=== PATIENT | female | born 1935 | race Caucasian/White ===

== ENCOUNTER → 2016-11-06 | Outpatient (CLI) | payer MEDICARE ==
[~2016-11-06] MED LIST: ASPIRIN E.C. 8181 MG PO; BENICAR20 MG PO; CALCIUM + D 6001 TA1 PO; CLOPIDOGREL PO; CRESTOR PO; LISINOPRIL2.5 MG PO; LIVALO2 MG PO; LOPRESSOR50 MG PO; MULTIPLE VITAMI1 CAP PO; [UNRECOGNIZED DRUG - REMARK]; [UNRECOGNIZED DRUG - REMARK]
== END ==
LOC: COL.RAD 07:37
DX: Z01.812 Encounter for preprocedural laboratory examination (principal); I70.213 Atherosclerosis of native arteries of extremities with intermittent claudication, bilateral legs; I70.0 Atherosclerosis of aorta
CPT/HCPCS: Q9967

== ENCOUNTER → 2017-02-10 | Outpatient (CLI) | payer MEDICARE | LOC: MC.RAD 15:33 | DX: Z12.31 Encounter for screening mammogram for malignant neoplasm of breast (principal) ==

== ENCOUNTER → 2018-05-19 | Outpatient (CLI) | payer MEDICARE | LOC: MC.RAD 03-12 17:00 | DX: Z12.31 Encounter for screening mammogram for malignant neoplasm of breast (principal) ==

== ENCOUNTER → 2018-10-21 | Outpatient (CLI) | payer MEDICARE ==
--- NOTE | 2018-10-16 14:49 | NUR ---
PT WAS RESCHEDULED FOR Friday10/21/18 @ 1230. PT CALLED AND INFORMED. STOPPED PLAVIX ON 10/17/18
[~2018-10-21] VITALS: Ht 157.5 cm; Wt 66.3 kg
[~2018-10-21] MED LIST changes: -CALCIUM + D 6001 TA1 PO; +CALCIUM 600MG+D1 TAB PO; +CLARITIN 1010 MG/TAB PO; -CLOPIDOGREL PO; +COZAAR100 MG PO; +LOPRESSOR100 MG PO; +NORVASC2.5 MG PO; +PLAVIX 75MG TAB75 MG PO; +ZOCOR 20MG20 MG PO
[2018-10-21 12:44] VITALS: BP 142/55; PULSE 74
[2018-10-21 13:30] VITALS: BP 155/58; PULSE 70
--- NOTE | 2018-10-21 13:45 | NUR ---
pt out to car per ambulation. Denies complaints at this time. Pt and awaiting ride home.
== END ==
LOC: COL.RAD 10-20 12:30
DX: R18.8 Other ascites (principal); Z85.43 Personal history of malignant neoplasm of ovary

== ENCOUNTER → 2018-12-03 | Outpatient (CLI) | payer MEDICARE | LOC: COL.RAD 10:01 | DX: C56.9 Malignant neoplasm of unspecified ovary (principal); J90 Pleural effusion, not elsewhere classified; R18.8 Other ascites | CPT/HCPCS: Q9967 ==

== ENCOUNTER → 2018-12-04 | Outpatient (CLI) | payer MEDICARE ==
[~2018-12-04] VITALS: Ht 157.5 cm; Wt 61.4 kg
[2018-12-04 12:12] VITALS: BP 146/77; PULSE 75
[2018-12-04 13:10] VITALS: BP 137/48; PULSE 73
--- NOTE | 2018-12-04 13:10 | NUR ---
dr wan removed 550 cc of orange fluid from the lung. cxr is negative.
--- NOTE | 2018-12-04 13:25 | NUR ---
PT AMBULATED TO [facility] AND WAS LEFT WITH FAMILY. SHE DID NOT WANT A WHEELCHAIR.
[2018-12-04 13:29] LABS: PLEURAL FLUID RBC 5000 /mm3 (0-0); PLEURAL FLUID WBC 1272 /mm3
[2018-12-04 13:35] LABS: GLUCOSE,PLEURAL FLUID 77 mg/dL
[2018-12-04 13:40] LABS: PLEURAL FLUID APPEARANCE CLOUDY; PLEURAL FLUID COLOR YELLOW
== END ==
LOC: COL.RAD 11:58
PROVIDERS: Internal Medicine Medical Oncology
DX: J90 Pleural effusion, not elsewhere classified (principal); C56.9 Malignant neoplasm of unspecified ovary

== ENCOUNTER 2019-01-05 13:51 | Day surgery (SDC) | payer MEDICARE ==
[~2019-01-05] VITALS: Ht 157.5 cm; Wt 62.4 kg
[2019-01-05] MEDS ORDERED: TYLENOL PM EXTR1 TA1 PO (14:39)
[2019-01-05 14:56] VITALS: BP 138/50; PULSE 60; TEMP 98.5
[2019-01-05 18:14] VITALS: TEMP 97.4
[2019-01-05 18:30] VITALS: BP 159/56; PULSE 57
[2019-01-05 18:45] VITALS: BP 159/62; PULSE 57
--- NOTE | 2019-01-05 18:49 | NUR ---
Pt up to room with at bedside. Post op vitals monitoring in progress, VSS. Pt denies pain at this time. Dinner ordered. Call light within reach.
[2019-01-05 19:00] VITALS: BP 152/55; PULSE 57
--- NOTE | 2019-01-05 19:10 | NUR ---
Patient is sitting up in bed eating supper, is at bedside. Patient is inquiring about discharge. No order has been placed. Will call on-call urologist with patients wishes.
--- NOTE | 2019-01-05 19:45 | NUR ---
Call placed to Dr. Simpson regarding patients discharge wishes. Notified of VS and urine output. Was given verbal order for discharge. Patient was notified and started gathering belongings and called for ride home.
--- NOTE | 2019-01-05 21:05 | NUR ---
Patient discharged at 2034 accompanied by via private vehicle. Personal belongings with patient. Port deaccessed prior to discharge. Hemostasis acheived.
== END 2019-01-05 20:35 | disposition home or self-care (01) ==
LOC: SDCO 13:51 → MEDICAL 18:46 → SDCO 20:35
DX: N13.1 Hydronephrosis with ureteral stricture, not elsewhere classified (principal); N39.46 Mixed incontinence; N32.81 Overactive bladder; C56.9 Malignant neoplasm of unspecified ovary; I25.10 Atherosclerotic heart disease of native coronary artery without angina pectoris; I10 Essential (primary) hypertension; R73.02 Impaired glucose tolerance (oral); M19.90 Unspecified osteoarthritis, unspecified site; M85.80 Other specified disorders of bone density and structure, unspecified site; Z90.710 Acquired absence of both cervix and uterus; Z95.1 Presence of aortocoronary bypass graft; Z79.02 Long term (current) use of antithrombotics/antiplatelets; Z79.899 Other long term (current) drug therapy; Z88.1 Allergy status to other antibiotic agents; Z88.7 Allergy status to serum and vaccine; Z88.8 Allergy status to other drugs, medicaments and biological substances; Z83.3 Family history of diabetes mellitus; Z82.49 Family history of ischemic heart disease and other diseases of the circulatory system
CPT/HCPCS: OP; C1769; C2617; J1100; J1885; J2405; J2704; J3010; J7120; Q9967

== ENCOUNTER → 2019-01-27 | Outpatient (CLI) | payer MEDICARE ==
[~2019-01-27] VITALS: Ht 157.5 cm; Wt 60.9 kg
[~2019-01-27] MED LIST changes: +TYLENOL PM EXTR1 TA1 PO
[2019-01-27 09:15] VITALS: BP 131/74; PULSE 67
--- NOTE | 2019-01-27 09:57 | NUR ---
No fluid to drain. Pt out to car ambulatory without complaints.
== END ==
LOC: COL.RAD 09:00
DX: C56.9 Malignant neoplasm of unspecified ovary (principal); R18.8 Other ascites

== ENCOUNTER 2019-04-24 11:28 | Observation (INO) | payer MEDICARE ==
[~2019-04-24] VITALS: Ht 154.9 cm; Wt 61.5 kg
[2019-04-24] MEDS ORDERED: NEULASTA 66 MG/0.6 M SC (11:54)
[2019-04-24 12:45] LABS: MEAN CELL VOLUME 98 fl (80.0-100.0); MEAN CORPUSCULAR HEMOGLOBIN 32 pg (27.0-31.0); MEAN CORPUSCULAR HGB CONC 33 g/dl (33.0-37.0); MEAN PLATELET VOLUME 9.3 fl (7.4-10.4); PLATELET COUNT 291 K/mm3 (130-400); REDCELL DISTRIBUTION WIDTH-CV 12.8 % (11.5-14.5)
[2019-04-24 12:54] LABS: HEMATOCRIT 30.5 % (37.0-47.0); INR 1.1 (0.8-3.0); PROTHROMBIN TIME 12.9 SECONDS (9.7-12.8)
[2019-04-24 12:57] LABS: ALANINE AMINOTRANSFERASE 15 U/L (9-52); ALBUMIN 3.4 gm/dL (3.5-5.0); ALKALINE PHOSPHATASE 66 U/L (50-136); ANION GAP 8 mmol/L (7-16); AST,SGOT 30 U/L (15-37); BILIRUBIN,TOTAL 0.3 mg/dL (0.0-1.0); BLOOD UREA NITROGEN 26 mg/dL (7-17); C-REACTIVE PROTEIN 1.5 mg/dL (0.0-0.9); CALCIUM 8.4 mg/dL (8.4-10.2); CARBON DIOXIDE 22 mmol/L (22-30); CHLORIDE 107 mmol/L (98-107); CREATININE, serum 0.74 (0.52-1.25); GLUCOSE 100 mg/dL (74-106); PARTIAL THROMBOPLASTIN TIME 30.3 SECONDS (26.0-37.0); SODIUM 138 mmol/L (137-145); TOTAL PROTEIN 6.9 gm/dL (6.4-8.2)
[2019-04-24 13:08] LABS: TROPONIN-I < 0.012 ng/mL (0.000-0.035)
[2019-04-24 14:19] LABS: COLLECTION METHOD CLEAN CATCH
[2019-04-24 14:21] LABS: LYMPHOCYTE 5 % (20.0-51.0); NEUTROPHILS 95 % (42.0-75.2); PLATELET ESTIMATE NORMAL (NORMAL)
[2019-04-24 14:35] LABS: MUCOUS Present /lpf; PH 5 (5-8); SQUAMOUS EPITHELIAL 0-2 /hpf; URINE APPEARANCE Turbid; URINE BACTERIA Rare /hpf; URINE BILIRUBIN Negative (NEGATIVE); URINE BLOOD 1+ (NEGATIVE); URINE COLOR Yellow; URINE GLUCOSE Negative (NEGATIVE); URINE KETONE Negative (NEGATIVE); URINE LEUKOCYTE ESTERASE 3+ (NEGATIVE); URINE NITRATE Positive (NEGATIVE); URINE PROTEIN(semi-quant) Negative (NEGATIVE); URINE UROBILINOGEN Negative (NEGATIVE)
--- NOTE | 2019-04-24 17:00 | NUR ---
Pt arrived to floor at this time from ER, will orient to room.
[2019-04-24 17:17] VITALS: BP 92/69; PULSE 89; TEMP 98.1
--- NOTE | 2019-04-24 18:44 | NUR ---
Pt resting in bed, PRN pain and nausea meds provided. Will give bedside shift report to nightshift nurse care.
[2019-04-24 21:15] VITALS: BP 98/50; PULSE 73; TEMP 98.1
--- NOTE | 2019-04-24 22:03 | NUR ---
Pt sleeping in bed. Came in for increasing abd pain, dx with ascites. will have paracentesis tomorrow. alert and oriented with vss. ind in room. states she if very sleepy. has dx of ovarian cancer with r uretal stent placement. chemo tx on . took pm meds well. lovenox for dvt. generalized abdominal pain but does not want medication at this time. denies needs. call light within reach, will continue to derrick
[2019-04-24 23:25] VITALS: BP 119/55; PULSE 72; TEMP 98.3
[2019-04-25 04:14] VITALS: BP 121/37; PULSE 76; TEMP 98.4
[2019-04-25 04:31] VITALS: BP 114/40
[2019-04-25 05:56] LABS: MEAN CELL VOLUME 101 fl (80.0-100.0); MEAN CORPUSCULAR HGB CONC 31 g/dl (33.0-37.0); MEAN PLATELET VOLUME 9.6 fl (7.4-10.4); PLATELET COUNT 255 K/mm3 (130-400); REDCELL DISTRIBUTION WIDTH-CV 12.9 % (11.5-14.5)
[2019-04-25 06:00] LABS: HEMATOCRIT 28.3 % (37.0-47.0); HEMOGLOBIN 8.9 g/dl (12.5-16.0); MEAN CORPUSCULAR HEMOGLOBIN 32 pg (27.0-31.0)
[2019-04-25 06:05] LABS: CALCIUM 7.9 mg/dL (8.4-10.2); CREATININE, serum 0.72 (0.52-1.25); MAGNESIUM 2.1 mg/dL (1.6-2.3); POTASSIUM 4.1 mmol/L (3.4-5.0)
[2019-04-25 06:25] LABS: BAND 20 % (0-10); EOSINOPHIL 1 % (0-4); LYMPHOCYTE 5 % (20.0-51.0); METAMYELOCYTE 6 % (0-0); NEUTROPHILS 70 % (42.0-75.2); PLATELET ESTIMATE NORMAL (NORMAL)
--- NOTE | 2019-04-25 09:15 | NUR ---
Patient returned to room per w/c from radiology. Reports large amount fluid removed per paracentesis. VSS. Tylenol given for discomfort.
[2019-04-25 09:25] VITALS: BP 142/51; PULSE 81; TEMP 97.9
[2019-04-25 09:55] LABS: PERITONEAL -POLYMORPHONUCLEAR 9.9 % (0-25); PERITONEAL FLUID RBC 2000 /mm3 (0-0)
[2019-04-25] MEDS ORDERED: OMNICEF 300MG300 MG PO ×2 (12:49→13:03)
[2019-04-25 12:51] VITALS: BP 128/71; PULSE 70; TEMP 98.5
[2019-04-25] MEDS ORDERED: MIRALAX510G PO (12:57)
--- NOTE | 2019-04-25 14:15 | NUR ---
States can breathe much better. Able to eat more for lunch. Dr. Way saw patient. Antibiotic given. Port de-accessed. Home instructions reviewed. Dismissed to home per w/c with family.
[2019-04-26 08:11] LABS: PATHOLOGY DIFF REVIEW OK +
== END 2019-04-25 14:15 | disposition home or self-care (01) ==
LOC: COL.ER 11:28 → SURG 15:43
PROVIDERS: Emergency Medicine; Nurse Practitioner Family; ADMIT Internal Medicine
DX: R18.8 Other ascites (principal); N39.0 Urinary tract infection, site not specified; D72.829 Elevated white blood cell count, unspecified; C56.9 Malignant neoplasm of unspecified ovary; I11.0 Hypertensive heart disease with heart failure; I50.9 Heart failure, unspecified; I25.10 Atherosclerotic heart disease of native coronary artery without angina pectoris; Z95.5 Presence of coronary angioplasty implant and graft; Z79.899 Other long term (current) drug therapy; Z92.21 Personal history of antineoplastic chemotherapy; Z90.49 Acquired absence of other specified parts of digestive tract; Z79.02 Long term (current) use of antithrombotics/antiplatelets; Z88.1 Allergy status to other antibiotic agents; Z88.8 Allergy status to other drugs, medicaments and biological substances
CPT/HCPCS: A4216; G0378; J0696; J1644; J1650; J2405; J7030; Q9967

== ENCOUNTER → 2019-05-05 | Outpatient (CLI) | payer MEDICARE ==
[~2019-05-05] VITALS: Ht 154.9 cm; Wt 59.4 kg
[~2019-05-05] MED LIST changes: +MIRALAX PA17 GM/Dose PO; +MIRALAX510G PO; +NEULASTA 66 MG/0.6 M SC; +OMNICEF 300MG300 MG PO
[2019-05-05 12:16] VITALS: BP 141/54; PULSE 74
[2019-05-05 13:35] VITALS: BP 96/60; PULSE 71
[2019-05-05 13:45] VITALS: BP 92/55; PULSE 70
== END ==
LOC: COL.RAD 05-03 14:15
DX: R18.8 Other ascites (principal); C56.9 Malignant neoplasm of unspecified ovary

== ENCOUNTER → 2019-05-18 | Outpatient (CLI) | payer MEDICARE ==
[~2019-05-18] VITALS: Ht 154.9 cm; Wt 60.0 kg
[2019-05-18 14:09] VITALS: BP 126/63; PULSE 92
[2019-05-18 15:20] VITALS: BP 103/57; PULSE 80
[2019-05-18 16:31] LABS: PERITONEAL -POLYMORPHONUCLEAR 29.6 % (0-25); PERITONEAL FLUID RBC 1000 /mm3 (0-0)
== END ==
LOC: COL.RAD 14:00
PROVIDERS: Internal Medicine
DX: C56.9 Malignant neoplasm of unspecified ovary (principal); R18.8 Other ascites

== ENCOUNTER → 2019-05-27 | Outpatient (CLI) | payer MEDICARE ==
[~2019-05-27] VITALS: Ht 154.9 cm; Wt 48.0 kg
[2019-05-27 12:44] VITALS: BP 116/57; PULSE 59
[2019-05-27 13:25] VITALS: BP 115/50; PULSE 84
== END ==
LOC: COL.RAD 12:29
DX: C56.9 Malignant neoplasm of unspecified ovary (principal); R18.8 Other ascites

== ENCOUNTER 2019-05-30 19:58 | Inpatient (IN) | payer MEDICARE ==
[~2019-05-30] VITALS: Ht 154.9 cm; Wt 60.3 kg
[~2019-05-30 19:58] MED LIST changes: -LOPRESSOR100 MG PO; +TOPROL XL100 MG PO
[2019-05-30 20:48] LABS: HEMOGLOBIN 10.4 g/dl (12.5-16.0); MEAN CELL VOLUME 97 fl (80.0-100.0); MEAN CORPUSCULAR HEMOGLOBIN 31 pg (27.0-31.0); MEAN CORPUSCULAR HGB CONC 32 g/dl (33.0-37.0); MEAN PLATELET VOLUME 9.6 fl (7.4-10.4); PLATELET COUNT 280 K/mm3 (130-400); RED BLOOD COUNT 3.33 M/mm3 (4.10-5.30)
[2019-05-30 20:51] LABS: INR 1.2 (0.8-3.0); PROTHROMBIN TIME 13.6 SECONDS (9.7-12.8)
[2019-05-30 20:55] LABS: HEMATOCRIT 32.2 % (37.0-47.0)
[2019-05-30 21:07] LABS: ALANINE AMINOTRANSFERASE 12 U/L (9-52); ALBUMIN 2.8 gm/dL (3.5-5.0); ALKALINE PHOSPHATASE 123 U/L (50-136); ANION GAP 12 mmol/L (7-16); AST,SGOT 23 U/L (15-37); BILIRUBIN,TOTAL 0.2 mg/dL (0.0-1.0); BLOOD UREA NITROGEN 42 mg/dL (7-17); C-REACTIVE PROTEIN 7.1 mg/dL (0.0-0.9); CALCIUM 8.5 mg/dL (8.4-10.2); CARBON DIOXIDE 17 mmol/L (22-30); CHLORIDE 104 mmol/L (98-107); CREATININE, serum 1.42 (0.52-1.25); GLUCOSE 161 mg/dL (74-106); LIPASE 44 U/L (23-300); SODIUM 133 mmol/L (137-145); TOTAL PROTEIN 6.2 gm/dL (6.4-8.2)
[2019-05-30 21:30] LABS: TROPONIN-I < 0.012 ng/mL (0.000-0.035)
[2019-05-30 21:45] LABS: METAMYELOCYTE 1 % (0-0)
[2019-05-30 21:47] LABS: ANISOCYTOSIS 1+; HYPOCHROMIA 1+
[2019-05-30 21:49] LABS: HELMET CELLS 1+
[2019-05-30 21:53] LABS: BAND 3 % (0-10); NEUTROPHILS 186 % (42.0-75.2)
[2019-05-30 21:54] LABS: LYMPHOCYTE 7 % (20.0-51.0)
[2019-05-30 22:04] LABS: COLLECTION METHOD CLEAN CATCH
[2019-05-30 22:59] LABS: MUCOUS Present /lpf; PH 5 (5-8); URINE APPEARANCE Turbid; URINE BACTERIA Rare /hpf; URINE BILIRUBIN Negative (NEGATIVE); URINE BLOOD 2+ (NEGATIVE); URINE COLOR Yellow; URINE GLUCOSE Negative (NEGATIVE); URINE KETONE Negative (NEGATIVE); URINE LEUKOCYTE ESTERASE 2+ (NEGATIVE); URINE NITRATE Negative (NEGATIVE); URINE PROTEIN(semi-quant) 2+ (NEGATIVE); URINE UROBILINOGEN Negative (NEGATIVE)
[2019-05-31] VITALS (398 sets, daily range): BP systolic 112–137; BP diastolic 57–94; PULSE 92–114; TEMP 97.6–99.2; O2SAT 72–100
[2019-05-31 05:56] LABS: MEAN CELL VOLUME 98 fl (80.0-100.0); MEAN CORPUSCULAR HGB CONC 31 g/dl (33.0-37.0); MEAN PLATELET VOLUME 9.6 fl (7.4-10.4); PLATELET COUNT 253 K/mm3 (130-400)
[2019-05-31 05:59] LABS: INR 1.2 (0.8-3.0); PROTHROMBIN TIME 13.5 SECONDS (9.7-12.8)
[2019-05-31 06:02] LABS: HEMATOCRIT 31.3 % (37.0-47.0); HEMOGLOBIN 9.8 g/dl (12.5-16.0); MEAN CORPUSCULAR HEMOGLOBIN 31 pg (27.0-31.0)
[2019-05-31 06:08] LABS: ALBUMIN 2.5 gm/dL (3.5-5.0); BILIRUBIN,TOTAL 0.2 mg/dL (0.0-1.0); CALCIUM 8.1 mg/dL (8.4-10.2); CREATININE, serum 1.59 (0.52-1.25); MAGNESIUM 1.8 mg/dL (1.6-2.3); POTASSIUM 5.1 mmol/L (3.4-5.0); TOTAL PROTEIN 5.6 gm/dL (6.4-8.2)
[2019-05-31 06:15] LABS: PRE ALBUMIN 10.3 mg/dL (17.6-36.0)
[2019-05-31 06:25] LABS: BAND 26 % (0-10); LYMPHOCYTE 1 % (20.0-51.0); NEUTROPHILS 73 % (42.0-75.2)
[2019-05-31 06:26] LABS: ANISOCYTOSIS 1+; HYPOCHROMIA 1+; POIKILOCYTOSIS 1+
--- NOTE | 2019-05-31 10:57 | NUR ---
Initial visit; Patient thanked Packaging Associate for looking in on her and offering God's blessings and keeping her in Packaging Associate's prayers.
--- NOTE | 2019-05-31 14:24 | NUR ---
Plan: To return home with but does not know what other supports she may need. Assessment: SW met with patient about care and DC. Patient reports that she has her spouse Cabrera at home. SW asked client if her was present to support her. Patient states, "yes." Patient declines home health supports and SNF, if needed. Patient reports that she uses [facility] for RX. PCP is reports as Dr. Wyman with no [facility]. Patient denies the use of any DME supports. Action: Sw offered home health. SW educated patient on supports and services. Patient may need addtional services. Please follow for anticipated care.
--- NOTE | 2019-05-31 19:00 | NUR ---
Received report from MARKUS Oropeza.
[2019-06-01] VITALS (223 sets, daily range): BP systolic 123–151; BP diastolic 66–71; PULSE 85–108; TEMP 97.5–98.8; O2SAT 56–100
--- NOTE | 2019-06-01 00:50 | NUR ---
Notified Dr. Way of 500mL dark brown output from NG tube since exchaning suction canister at 1999. No new orders received at this time.
[2019-06-01 05:52] LABS: MEAN CELL VOLUME 96 fl (80.0-100.0); MEAN CORPUSCULAR HGB CONC 32 g/dl (33.0-37.0); MEAN PLATELET VOLUME 9.7 fl (7.4-10.4); PLATELET COUNT 234 K/mm3 (130-400); RED BLOOD COUNT 2.88 M/mm3 (4.10-5.30); REDCELL DISTRIBUTION WIDTH-CV 16.1 % (11.5-14.5)
[2019-06-01 05:56] LABS: HEMATOCRIT 27.7 % (37.0-47.0); HEMOGLOBIN 8.8 g/dl (12.5-16.0); MEAN CORPUSCULAR HEMOGLOBIN 31 pg (27.0-31.0)
[2019-06-01 05:57] LABS: ALBUMIN 2.3 gm/dL (3.5-5.0); BILIRUBIN,TOTAL 0.2 mg/dL (0.0-1.0); CALCIUM 8.1 mg/dL (8.4-10.2); CREATININE, serum 1.91 (0.52-1.25); POTASSIUM 4.2 mmol/L (3.4-5.0); TOTAL PROTEIN 5.3 gm/dL (6.4-8.2)
[2019-06-01 06:33] LABS: ANISOCYTOSIS 1+; BAND 14 % (0-10); HYPOCHROMIA 2+; LYMPHOCYTE 4 % (20.0-51.0); MICROCYTOSIS 1+; NEUTROPHILS 76 % (42.0-75.2); PLATELET ESTIMATE NORMAL (NORMAL)
--- NOTE | 2019-06-01 07:15 | NUR ---
Report given to MARKUS Oropeza.
--- NOTE | 2019-06-01 08:22 | NUR ---
MD Alexander called, no answer, message left stating AM labs and to call back regarding plan for Cysto procedure today
--- NOTE | 2019-06-01 10:47 | NUR ---
CONTRACT PROCESSOR student attended clinical rounds with the team. The patient is to have ureter stent placement this day. director agricultural services will continue to follow.
--- NOTE | 2019-06-01 14:00 | NUR ---
Pt returned from OR at this time - AAOx4, no pain, coughing d/t sore throat, VSS, and daughter at bedside. Brief in place, pt instructed to use call light when need to urinate occurs.
[2019-06-02] VITALS (9 sets, daily range): BP systolic 109–155; BP diastolic 35–94; PULSE 81–102; TEMP 97.7–98; O2SAT 94
[2019-06-02 05:20] LABS: MEAN CELL VOLUME 100 fl (80.0-100.0); MEAN CORPUSCULAR HGB CONC 31 g/dl (33.0-37.0); MEAN PLATELET VOLUME 9.4 fl (7.4-10.4); PLATELET COUNT 194 K/mm3 (130-400); RED BLOOD COUNT 2.61 M/mm3 (4.10-5.30); REDCELL DISTRIBUTION WIDTH-CV 16.4 % (11.5-14.5)
[2019-06-02 05:32] LABS: HEMOGLOBIN 8.1 g/dl (12.5-16.0); MEAN CORPUSCULAR HEMOGLOBIN 31 pg (27.0-31.0)
[2019-06-02 05:39] LABS: ALBUMIN 2.2 gm/dL (3.5-5.0); BILIRUBIN,TOTAL 0.1 mg/dL (0.0-1.0); CALCIUM 7.9 mg/dL (8.4-10.2); CREATININE, serum 1.49 (0.52-1.25); TOTAL PROTEIN 5.1 gm/dL (6.4-8.2)
[2019-06-02 06:08] LABS: ANISOCYTOSIS 1+; BAND 8 % (0-10); LYMPHOCYTE 3 % (20.0-51.0); NEUTROPHILS 85 % (42.0-75.2); PLATELET ESTIMATE NORMAL (NORMAL)
--- NOTE | 2019-06-02 07:00 | NUR ---
Bedside shift report received from MARKUS Naik. Patient is awake, sitting up in bed, no complaints or concerns at this time. Full assessment completed. Bed in lowest position. Side rails up x3. Call light within reach.
--- NOTE | 2019-06-02 09:55 | NUR ---
Follow-up visit; Patient and her daughter thanked Oil Exploration Engineer for looking in on her and continuing to offer God's blessings.
--- NOTE | 2019-06-02 10:04 | NUR ---
CLOUD ENGINEER student met with the patient and the patient's daughter, Essie to revisit discharge plan. The patient reports she would like to wait until PT/OT make their recommendations before seeking out any services at discharge. donor services manager will continue to follow.
--- NOTE | 2019-06-02 15:53 | NUR ---
PT is recommending home with family. CORPORATE OFFICER student presented the patient with [email or web address]'s list of home health agencies. The patient would like to discuss it with her daughter Essie. services advisor will continue to follow.
--- NOTE | 2019-06-02 17:02 | NUR ---
2 surgical CNAs at bedside to assist in transferring patient up to room 322-2. Patient transferred with no complication. Family at bedside with patient's personal belongings and accompanied patient during transfer.
--- NOTE | 2019-06-02 19:10 | NUR ---
Pt came to the unit via bed. Cabrera and daughter were here with her. She needed to use the bathroom, she ambulated well with one assist and gait belt. Pt has non complaints at this time. Pt family did leave and will return in the am when they suspect the doctor's to round. She has been having loose stools earlier, this was reported from the ICU nurse MARKUS Lu. She asked to have a bedside commode at her bedside in case she does have to use the bathroom more frequently. Pt is currently sitting up in bed and is eathing her dinner tray. Call light within reach and bed is in lowest position.
[2019-06-03] VITALS: BP 98/60; PULSE 57; TEMP 97.8
[2019-06-03 00:24] VITALS: BP 133/65; PULSE 87; TEMP 97.5
[2019-06-03 03:59] VITALS: BP 127/62; PULSE 84; TEMP 97.4
--- NOTE | 2019-06-03 05:29 | NUR ---
Patient has been resting comfortably most the night. Denies pain and nausea. She is worried she may need another paracentesis before discharge. She stated her abdomen feels tight again. Explained that will have to be decided by her Doctor. She stated Dr Hannah has been the ordering them for her. No other changes at this time. Call light within reach.
[2019-06-03 06:09] LABS: BASO % 0.1 % (0.0-2.0); EOS % 0.1 % (0-4.0); GRAN # 12.9 (1.4-6.5); GRAN % 84.4 % (42.2-75.2); LYMPH # 1.4 (1.2-3.4); LYMPH % 9.4 % (20.0-51.0); MEAN CELL VOLUME 100 fl (80.0-100.0); MEAN CORPUSCULAR HGB CONC 30 g/dl (33.0-37.0); MEAN PLATELET VOLUME 9.6 fl (7.4-10.4); MONO # 0.7 (0.1-0.6); MONO % 4.8 % (1.7-9.3); PLATELET COUNT 160 K/mm3 (130-400); RED BLOOD COUNT 2.53 M/mm3 (4.10-5.30); REDCELL DISTRIBUTION WIDTH-CV 16.4 % (11.5-14.5)
[2019-06-03 06:26] LABS: CALCIUM 7.5 mg/dL (8.4-10.2)
[2019-06-03 06:28] LABS: HEMATOCRIT 25.4 % (37.0-47.0); HEMOGLOBIN 7.7 g/dl (12.5-16.0); MEAN CORPUSCULAR HEMOGLOBIN 30 pg (27.0-31.0)
[2019-06-03 07:41] VITALS: BP 105/82; PULSE 87; TEMP 97.9
--- NOTE | 2019-06-03 08:00 | NUR ---
Patient in bed eating breakfast. Alert and oriented x 3. Assessment complete. Patient states she would like to talk to doctor this AM about having paracentesis done prior to discharge did have paracentesis done last . Denies pain at this time. Denies further needs at this time. Port to right chest without complications, fluids infusing per orders.
[2019-06-03 10:40] LABS: INR 1.1 (0.8-3.0); PROTHROMBIN TIME 13.2 SECONDS (9.7-12.8)
[2019-06-03] MEDS ORDERED: OMNICEF 300MG300 MG PO (11:18)
[2019-06-03] MEDS ORDERED: ZOFRAN ODT4 MG PO (11:19)
[2019-06-03 12:20] VITALS: BP 111/63; PULSE 85; TEMP 98.1
[2019-06-03 14:20] LABS: PERITONEAL -POLYMORPHONUCLEAR 12.5 % (0-25); PERITONEAL FLUID RBC 1000 /mm3 (0-0)
--- NOTE | 2019-06-03 16:02 | NUR ---
Seam Press Operator attended clinical rounds with the team and patient to discharge home today. Patient states she is open to Home Health and would like to go home today. BERNIE followed up on patient choice and patient selected [facility]. BERNIE contacted Tyler at [facility] and faxed referral. BERNIE was contacted by Denice at [facility] who advised they could accept referral. BERNIE faxed discharge summary, most recent progress note, and discharge order to Denice. No additional needs at this time.
--- NOTE | 2019-06-03 16:30 | NUR ---
Discharge education provided to patient. Educated on when to call provider and follow up appointments. Educated on all new medications. All questions answered. Port to right chest deaccessed, heparin locked. Gauze and tegaderm dressing in place. Denies further needs at this time. Patient out with surgical staff and family.
--- NOTE | 2019-06-03 16:45 | NUR ---
Contacted Samantha Hand RN at 's office-informed her of pt's need for continued help with HH. Also of having hx of macular degeneration, being legally blind and his need for help if pt's condition would worsen. Pt also has son living with them that has lung cancer and is receiving treatment. Pt drives son to appointments etc. Samantha spoke with daughter and made appointment for pt Friday at 11:15 am. Conference call with Essie/siblings answering questions of care for pt upon discharge and appointments. Essie is DPOA/daughter.
[2019-06-03 17:18] VITALS: BP 124/59; PULSE 78; TEMP 98.4
[2019-06-09] MEDS ORDERED: ASPIRIN E.C. 8181 MG PO (15:36)
== END 2019-06-03 16:50 | disposition home or self-care (01) | DRG 987 ==
LOC: COL.ER 19:58 → IMCU 22:56 → SURG 06-02 17:05
PROVIDERS: Emergency Medicine; Physician Assistant; Urology; ADMIT Internal Medicine
PROC: BT1FYZZ Fluoroscopy of Left Kidney, Ureter and Bladder using Other Contrast (ICD-10-PCS; principal; 2019-06-01 12:00)
PROC: 0T768DZ Dilation of Right Ureter with Intraluminal Device, Via Natural or Artificial Opening Endoscopic (ICD-10-PCS; 2019-06-01 12:00)
PROC: 0T778DZ Dilation of Left Ureter with Intraluminal Device, Via Natural or Artificial Opening Endoscopic (ICD-10-PCS; 2019-06-01 12:00)
PROC: 0TP98DZ Removal of Intraluminal Device from Ureter, Via Natural or Artificial Opening Endoscopic (ICD-10-PCS; 2019-06-01 12:00)
PROC: 0W9G3ZZ Drainage of Peritoneal Cavity, Percutaneous Approach (ICD-10-PCS; 2019-06-03)
DX: K56.7 Ileus, unspecified (principal); E43 Unspecified severe protein-calorie malnutrition; J18.9 Pneumonia, unspecified organism; N17.9 Acute kidney failure, unspecified; E87.2 Acidosis; R18.8 Other ascites; N39.0 Urinary tract infection, site not specified; N13.30 Unspecified hydronephrosis; E46 Unspecified protein-calorie malnutrition; K56.609 Unspecified intestinal obstruction, unspecified as to partial versus complete obstruction; N13.9 Obstructive and reflux uropathy, unspecified; N20.0 Calculus of kidney; I95.9 Hypotension, unspecified; I10 Essential (primary) hypertension; I25.10 Atherosclerotic heart disease of native coronary artery without angina pectoris; R53.81 Other malaise; Z68.23 Body mass index [BMI] 23.0-23.9, adult; M19.90 Unspecified osteoarthritis, unspecified site; B96.20 Unspecified Escherichia coli [E. coli] as the cause of diseases classified elsewhere; Z79.02 Long term (current) use of antithrombotics/antiplatelets; Z95.5 Presence of coronary angioplasty implant and graft; Z85.43 Personal history of malignant neoplasm of ovary; Z90.710 Acquired absence of both cervix and uterus; Z88.0 Allergy status to penicillin; Z88.1 Allergy status to other antibiotic agents
CPT/HCPCS: 99223-AI; 99232-AI; 99233-AI; 99239; A4216; C1769; C2617; J0456; J0690; J0692; J0696; J1100; J1644; J1885; J2405; J2543; J2550; J2704; J3010; J7030; J7050; Q9967

== ENCOUNTER → 2019-06-10 | Outpatient (CLI) | payer MEDICARE ==
[~2019-06-10] VITALS: Ht 154.9 cm; Wt 61.8 kg
[~2019-06-10] MED LIST changes: +ZOFRAN ODT4 MG PO
[2019-06-10 12:20] VITALS: BP 100/52; PULSE 81
[2019-06-10 13:30] VITALS: BP 105/39; PULSE 83
== END ==
LOC: COL.RAD 12:00
DX: R18.0 Malignant ascites (principal)

== ENCOUNTER → 2019-06-11 | Outpatient (CLI) | payer MEDICARE ==
[~2019-06-11] VITALS: Ht 154.9 cm; Wt 58.0 kg
[2019-06-11 08:18] VITALS: BP 116/51; PULSE 93
[2019-06-11 09:10] VITALS: BP 98/52; PULSE 88
== END ==
LOC: COL.RAD 07:30
DX: J91.0 Malignant pleural effusion (principal); R18.8 Other ascites; Z98.890 Other specified postprocedural states

== ENCOUNTER → 2019-06-14 | Outpatient (CLI) | payer MEDICARE ==
[~2019-06-14] VITALS: Ht 154.9 cm; Wt 55.8 kg
[2019-06-14 10:14] VITALS: BP 102/65; PULSE 83
[2019-06-14 10:55] VITALS: BP 107/56; PULSE 72
== END ==
LOC: COL.RAD 09:45
DX: J91.0 Malignant pleural effusion (principal); Z95.9 Presence of cardiac and vascular implant and graft, unspecified

== ENCOUNTER → 2019-06-18 | Outpatient (CLI) | payer MEDICARE ==
[~2019-06-18] VITALS: Ht 154.9 cm; Wt 55.5 kg
[~2019-06-18] MED LIST changes: +METOZOLV ODT5 MG PO; +TESSALON P100 MG/CAP PO
[2019-06-18 13:41] VITALS: BP 108/71; PULSE 89
[2019-06-18 14:45] VITALS: BP 108/56; PULSE 88
== END ==
LOC: COL.RAD 13:24
DX: R18.8 Other ascites (principal); Z85.43 Personal history of malignant neoplasm of ovary

== ENCOUNTER 2019-06-22 21:14 | Inpatient (IN) | payer MEDICARE ==
[~2019-06-22] VITALS: Ht 154.9 cm; Wt 53.0 kg
[~2019-06-22 21:14] MED LIST changes: -METOZOLV ODT5 MG PO; -TESSALON P100 MG/CAP PO
[2019-06-22] MEDS ORDERED: METOZOLV ODT5 MG PO (21:35)
[2019-06-22] MEDS ORDERED: TESSALON P100 MG/CAP PO (21:35)
[2019-06-22 22:27] LABS: BASO % 0.2 % (0.0-2.0); EOS % 0.3 % (0-4.0); GRAN # 13.7 (1.4-6.5); GRAN % 85.9 % (42.2-75.2); LYMPH # 1.3 (1.2-3.4); LYMPH % 8.1 % (20.0-51.0); MEAN CELL VOLUME 97 fl (80.0-100.0); MEAN CORPUSCULAR HGB CONC 31 g/dl (33.0-37.0); MEAN PLATELET VOLUME 10.2 fl (7.4-10.4); MONO # 0.7 (0.1-0.6); MONO % 4.7 % (1.7-9.3); PLATELET COUNT 154 K/mm3 (130-400); RED BLOOD COUNT 3.03 M/mm3 (4.10-5.30); REDCELL DISTRIBUTION WIDTH-CV 18.1 % (11.5-14.5)
[2019-06-22 22:28] LABS: HEMATOCRIT 29.4 % (37.0-47.0); HEMOGLOBIN 9.2 g/dl (12.5-16.0); MEAN CORPUSCULAR HEMOGLOBIN 30 pg (27.0-31.0)
[2019-06-22 22:40] LABS: ALANINE AMINOTRANSFERASE 23 U/L (4-34); ALBUMIN 2.4 gm/dL (3.5-5.0); ALKALINE PHOSPHATASE 72 U/L (50-136); ANION GAP 9 mmol/L (7-16); AST,SGOT 29 U/L (15-37); BILIRUBIN,TOTAL 0.2 mg/dL (0.0-1.0); BLOOD UREA NITROGEN 42 mg/dL (7-17); C-REACTIVE PROTEIN 3.8 mg/dL (0.0-0.9); CALCIUM 7.9 mg/dL (8.4-10.2); CARBON DIOXIDE 19 mmol/L (22-30); CHLORIDE 106 mmol/L (98-107); CREATININE, serum 1.68 (0.52-1.25); GLUCOSE 132 mg/dL (74-106); POTASSIUM 4.1 mmol/L (3.4-5.0); SODIUM 134 mmol/L (137-145); TOTAL PROTEIN 5.6 gm/dL (6.4-8.2)
[2019-06-22 22:48] LABS: TROPONIN-I < 0.012 ng/mL (0.000-0.035)
[2019-06-22 23:55] LABS: COLLECTION METHOD CATHETER
[2019-06-23] VITALS (8 sets, daily range): BP systolic 117–141; BP diastolic 62–76; PULSE 93–103; TEMP 97.5–98.5
[2019-06-23 00:02] LABS: BUDDING YEAST Present /hpf; PH 5 (5-8); SQUAMOUS EPITHELIAL None Seen /hpf; URINE APPEARANCE Turbid; URINE BACTERIA Rare /hpf; URINE BILIRUBIN Negative (NEGATIVE); URINE BLOOD 3+ (NEGATIVE); URINE COLOR Yellow; URINE GLUCOSE Negative (NEGATIVE); URINE KETONE Negative (NEGATIVE); URINE LEUKOCYTE ESTERASE 3+ (NEGATIVE); URINE NITRATE Negative (NEGATIVE); URINE PROTEIN(semi-quant) 2+ (NEGATIVE); URINE RBC >50 /hpf; URINE UROBILINOGEN Negative (NEGATIVE)
--- NOTE | 2019-06-23 00:44 | NUR ---
Received report from ED RN Amador.
--- NOTE | 2019-06-23 01:00 | NUR ---
Pt arrived to medical unit room 305 via stretcher.
--- NOTE | 2019-06-23 01:52 | NUR ---
Assessment complete. Med rec completed. Denies nausea or vomiting at this time. Denies any other pain or discomfort. Alert and oriented x4. Uses walker at home baseline. Walker provided for pt, placed at bedside. Portacath to Rt upper chest intact, dressing CDI, fluids currently infusing. Needs met at this time. Call light within reach.
--- NOTE | 2019-06-23 06:06 | NUR ---
Pt c/o upset stomach that is tolerable. No other complaints made. Call light within reach.
--- NOTE | 2019-06-23 06:49 | NUR ---
Report given to MARKUS Dietz.
[2019-06-23 07:44] LABS: BASO % 0.2 % (0.0-2.0); EOS % 0.1 % (0-4.0); GRAN # 9.6 (1.4-6.5); LYMPH # 1.5 (1.2-3.4); LYMPH % 12.4 % (20.0-51.0); MEAN CELL VOLUME 97 fl (80.0-100.0); MEAN CORPUSCULAR HGB CONC 31 g/dl (33.0-37.0); MEAN PLATELET VOLUME 10.3 fl (7.4-10.4); MONO # 0.6 (0.1-0.6); MONO % 4.8 % (1.7-9.3); PLATELET COUNT 134 K/mm3 (130-400); RED BLOOD COUNT 2.87 M/mm3 (4.10-5.30); REDCELL DISTRIBUTION WIDTH-CV 18.4 % (11.5-14.5)
[2019-06-23 07:45] LABS: HEMATOCRIT 27.7 % (37.0-47.0); HEMOGLOBIN 8.6 g/dl (12.5-16.0); MEAN CORPUSCULAR HEMOGLOBIN 30 pg (27.0-31.0)
[2019-06-23 08:05] LABS: ALBUMIN 2.2 gm/dL (3.5-5.0); BILIRUBIN,TOTAL 0.1 mg/dL (0.0-1.0); CALCIUM 7.6 mg/dL (8.4-10.2); CREATININE, serum 1.66 (0.52-1.25); POTASSIUM 4.3 mmol/L (3.4-5.0); TOTAL PROTEIN 5.3 gm/dL (6.4-8.2)
--- NOTE | 2019-06-23 08:17 | NUR ---
PT VOMITING. PROVIDER JAQUELINE ZELAYA ORDERED NAUSEA MEDICATION TO BE DOSED BY PHARM AND WILL BRING UP SOON. PT CURRENTLY STABLE. WILL CONTINUE TO MONITOR.
[2019-06-23 08:44] LABS: INR 1.1 (0.8-3.0); PROTHROMBIN TIME 12.4 SECONDS (9.7-12.8)
--- NOTE | 2019-06-23 11:00 | NUR ---
GAMA Edgar placed order for benadryl 25mg PO with tylenol. Benadryl 25mg tab and 650mg tylenol administered. Pt took one pill at a time. Immediately after swallowing the third pill, pt vomited dark green liquid, only observed benadryl pill in bucket. Pt request for other meds for sleep that can be adminsitered via IV. Notified GAMA Edgar of pt status and received orders to adminsiter phernergan. Phenergan administered. Will continue to monitor pt. Call light within reach.
--- NOTE | 2019-06-23 12:11 | NUR ---
Initial visit; Patient and her daughter thanked Director Check for looking in on her and offering prayer and God's blessings.
--- NOTE | 2019-06-23 13:25 | NUR ---
Pt resting in bed. Voices no pain, just some discomfort. No need for pain management at this time. Lunch had been given, but she has very little appetite. Pt states she doesn't need anything at this time. Call light within reach. No further concerns.
--- NOTE | 2019-06-23 13:48 | NUR ---
Met with daughter and Pait after treatment team rounding. Pt does report that she is considering hospice services and would probably choose to go to the Hospice house vs staying in her home. Her is blind and her adult son living with them has schizophrenia. Pati reports that they would probably remain in the home and support one another ( and son). Pt is very faigued at this point and so will try to talk with her and daughter later on today after she has been able to rest. Will also discuss pleurx drain as an option to consider as discussed by Dr Stratton.
--- NOTE | 2019-06-23 15:18 | NUR ---
After administering oral ativan and giving the pt GI cocktail, the pt immediately threw up. Observing the emesis, the ativan was not seen in it, however will contact the provider to inform regarding this situation. Pt still states she is not in pain, just discomfort from the ascites. Call light within reach. No further concerns at this time.
--- NOTE | 2019-06-23 15:20 | NUR ---
Wholesale Account Executive met with patient to complete initial intake and discuss discharge planning. Patient lives in [place] with her Nico (ph#[phone]) and her son Cortez. Patient was recently hospitalized from 05/30/19-06/03/19 and discharged home with home health. Patient states she was discharged yesterday from [facility]. SW contacted Tyler at [facility] who confirmed patient was discharged and would follow up with his team on patient. Patient was unsure on when the last time she was seen by her primary care physician Dr. Wyman or oncologist Dr. Moya. BERNIE met with Caro, Palliative RN and patient's daughter Essie to discuss discharge planning. Patient is considering transfer to [facility] but would like to discuss this with family before making any decisions. Essie expressed that patient needs assistance in verbalizing her desires. Essie reports patient saw Dr. Wyman on 06/09/[address] Moya on 06/11/19. Patient has Advance Directives located in EMR. SW to continue to follow.
--- NOTE | 2019-06-23 16:30 | NUR ---
Met with daughter, Essie, this afternoon. She is still thinking that her mother will want to go to hospice house at discharge but then reports that her mother told her she would talk it over with her after she gets home. I will meet with pt in the am to try to clarify her goals. She has been given something to help her relax at this point so want her to be able to rest and then be clear headed in am. We will try to have family meeting with tomorrow if ok with pt. Pt is really not eating anything and then usually after eating she has N/V. Talked with daughter about the decreased need for food at end of life, how we need to look at eating as comfort from taste rather than nutrition. We should have ice cream, pudding, jello available if she would like to try these things.
--- NOTE | 2019-06-23 19:13 | NUR ---
REPORT GIVEN TO MARKUS DOUGLAS.
--- NOTE | 2019-06-23 20:00 | NUR ---
Received report from MARKUS Dietz. Alert and oriented x4. C/O stomach discomfort but tolerable, denies nausea at this time. Pt requested something to help her sleep. Will contact GAMA Edgar for orders. Scheduled meds administered. Fluids infusing to portacath, dressing CDI. Needs met at this time. Call light within reach.
[2019-06-24] VITALS: BP 154/67; PULSE 107; TEMP 98.2
[2019-06-24 04:00] VITALS: BP 133/67; PULSE 89; TEMP 98.1
--- NOTE | 2019-06-24 06:04 | NUR ---
Pt states she got some sleep during this shift. Denies nausea at this time. Meds administered. Needs met. Call light within reach.
[2019-06-24 07:09] LABS: BASO % 0.2 % (0.0-2.0); EOS % 0.4 % (0-4.0); GRAN # 7.3 (1.4-6.5); LYMPH # 1.2 (1.2-3.4); LYMPH % 13.3 % (20.0-51.0); MEAN CELL VOLUME 99 fl (80.0-100.0); MEAN CORPUSCULAR HGB CONC 31 g/dl (33.0-37.0); MEAN PLATELET VOLUME 10.1 fl (7.4-10.4); MONO # 0.5 (0.1-0.6); MONO % 5.6 % (1.7-9.3); PLATELET COUNT 116 K/mm3 (130-400); RED BLOOD COUNT 2.79 M/mm3 (4.10-5.30); REDCELL DISTRIBUTION WIDTH-CV 18.6 % (11.5-14.5)
[2019-06-24 07:11] LABS: HEMATOCRIT 27.5 % (37.0-47.0); HEMOGLOBIN 8.5 g/dl (12.5-16.0); MEAN CORPUSCULAR HEMOGLOBIN 30 pg (27.0-31.0)
--- NOTE | 2019-06-24 07:16 | NUR ---
Report given to MARKUS Nava.
[2019-06-24 07:44] LABS: ALBUMIN 2.1 gm/dL (3.5-5.0); BILIRUBIN,TOTAL 0.2 mg/dL (0.0-1.0); CALCIUM 7.8 mg/dL (8.4-10.2); CREATININE, serum 2.12 (0.52-1.25); POTASSIUM 4.4 mmol/L (3.4-5.0); TOTAL PROTEIN 4.9 gm/dL (6.4-8.2)
[2019-06-24 08:17] VITALS: BP 113/74; PULSE 111; TEMP 97.5
--- NOTE | 2019-06-24 08:29 | NUR ---
PATIENT SITTING UP IN BED ATTEMPING TO DRINK CLEAR FLUIDS. EPIDOSE OF VOMITING AFTER TAKING IN 3 SIPS OF BROTH. DENIES NAUSEA. VISITING WITH PALLIATIVE CARE AT THIS TIME. DENIES FURTHER NEEDS AT THIS TIME. REFUSED ZOFRAN OR PHENERGAN. SEE EMAR FOR IV PROTONIX ADMINISTERED ORDERED. SEE FLOWSHEET FOR FVS OBTAINED WIT TACHYCARDIA HR 110-115. NOT ON TELEMETRY AT THIS TIME.
--- NOTE | 2019-06-24 09:49 | NUR ---
Met with patient alone first this morning and then met with her, Cabrera and daughter Essie. Pt is very clear that she does not feel she can go home and has requested that she go to the [facility] after discusssion. We also discussed having a pleurx drain placed for drainage of ascites. Purpose, method of working, risks and benefits were discussed with her and again with family. At this time she feels that she would want this placed. She also gave me permission to send her referral to [facility]. I spoke with Thony at [facility] and did fax pt's information to them. We will keep them advised about anticipated discharge date in light of pleurx placement. Family has been advised of this and is in agreement.
--- NOTE | 2019-06-24 10:25 | NUR ---
PATIENT SITTING UP IN BED VISITING WITH FAMILY. EATING ICE AND POPSICLE AT THIS TIME. DENIES NAUSEA. NO COCNERNS AT THIS TIME. FAMILY HAS NO QUESTIONS OR CONCENRS.
--- NOTE | 2019-06-24 11:51 | NUR ---
Pt has expressed concern to her family that she does not want to pay for a suite at [facility]--she just wants a smaller room. I spoke with Thony at [facility] and she advises that if they want a smaller room, and one is not available, they will only charge them the smaller room craft and then if they do have a smaller room become available, they will give them the option of moving to a smaller room or paying the higher craft for the suite. Pt was advised of this and message was left on Essie's phone.
[2019-06-24 13:08] VITALS: BP 114/55; PULSE 94; TEMP 98.1
--- NOTE | 2019-06-24 15:04 | NUR ---
Process Design Engineer attended clinical rounds with the team. Patient is agreeable to [facility] but is concerned they are full right now. SW followed up with Caro Palliative RN who advised [facility] is not full but they only have suites available at this time, not smaller rooms. Caro reports [facility] will only charge the family the cost of a small room if they choose to pursue a suite. SW to continue to follow.
[2019-06-24 16:05] VITALS: BP 111/61; PULSE 98; TEMP 97.7
[2019-06-24 18:55] VITALS: BP 117/62; PULSE 95; TEMP 98.6
--- NOTE | 2019-06-24 20:30 | NUR ---
Received report from MARKUS Nava. Alert and oriented. Denies any nausea or discomfort at this time. Portacath to Rt chest intact, flushed, dressing CDI. Walker at bedside. Pt aware of PRN meds for pain, nausea, sleep, anxiety. Needs met at this time. Pt request phernergan before bedtime. Call light within reach.
--- NOTE | 2019-06-24 21:00 | NUR ---
PRN 12.5mg phenergan adminsitered to pt as requested by pt. Needs met at this time. made pt comfortable. Call light within reach.
[2019-06-25] VITALS (13 sets, daily range): BP systolic 112–128; BP diastolic 7–89; PULSE 86–105
--- NOTE | 2019-06-25 00:57 | NUR ---
Asssisted pt to BR using walker. Denies any pain or discomfort at this time. States she was able to get some sleep. Ice chips provided to pt as requested. Needs met. Will continue to monitor pt. Call light within reach.
--- NOTE | 2019-06-25 04:27 | NUR ---
Checked on patient, easily aroused. Denies any pain or discomfort at this time. Stated no needs at this time. Call light within reach.
--- NOTE | 2019-06-25 05:44 | NUR ---
Assisted pt to the BR using walker. Pt states no needs or complaints at this time. Needs met. Call light within reach.
--- NOTE | 2019-06-25 06:46 | NUR ---
Report given to MARKUS Nava.
--- NOTE | 2019-06-25 08:30 | NUR ---
pt to room pt positioned in supine position. Pillows under legs. Warm blankets on pt. Monitor applied and O2 on at 2l/nc.
--- NOTE | 2019-06-25 08:49 | NUR ---
PATIENT LEFT UNIT FOR ULTRA SOUND GUIDE PLEURIX DRAIN PLACEMENT IN RADIOLOGY DEPARTMENT. AM CARES AND ASSESSMENT COMPLETED PRIOR TO LEAVNG THE FLOOR. DENIES C/O PAIN OR NAUSEA. SEE EMAR FOR ZOFRAN ADMINISTERED. DENIES NEEDS OR CONCERNS.
--- NOTE | 2019-06-25 09:08 | NUR ---
Drain placed by Dr Hendrickson in left side of abdomen. Draining milky white drainage.
--- NOTE | 2019-06-25 10:06 | NUR ---
Pt tolerated the pleurx drain placement well and is back in her room. I spoke with [facility] and she reports that they can admit pt to smaller room tomorrow at 10am. Daughter is scheduled to go out to their office at 2pm today to sign paperwork and she agrees to this plan. Pt was also involved in this conversation and was in agreement. Plan to for transport by private car at this time.
[2019-06-25] MEDS ORDERED: RT ALBUTER2.5 MG/0.5 IH (10:48)
[2019-06-25] MEDS ORDERED: ROXANOL 20MG20 MG/ML SL (10:49)
[2019-06-25] MEDS ORDERED: LORAINT SL (10:50)
[2019-06-25] MEDS ORDERED: ARTIFICIAL TEAR15 M7 OP (10:50)
[2019-06-25] MEDS ORDERED: ATROPINE 2 ML2 ML SL (10:50)
[2019-06-25] MEDS ORDERED: COMPAZINE25 MG/SUPP RC (10:51)
[2019-06-25] MEDS ORDERED: ANTI-DIARRHEAL2 MG PO (10:51)
[2019-06-25] MEDS ORDERED: TRANSDERM-0.5 MG/21 TD (10:52)
--- NOTE | 2019-06-25 11:28 | NUR ---
PATIENT HAD PLEURIX DRAIN PLACED TO LEFT ABD. PER RADIOLOGY 2500ML DRAINAGE REMOVED DURING INSERTION. FOAM/TEGADERM DRESSING IN PLACE CDI. DENIES C/O PAIN. NO NAUSEA. ASSISTED TO BATHROOM WITH 1:1 ASSIST. CURRENTLY LAYING IN BED WATCHING TV.ICE CHIPS AND FROZEN ENSURE CLEAR CHIPS PROVIDED PER PATIENT REQUEST. DENIES OTHER NEEDS OR CONCERNS. DAUGHTER JUAN JOSE RAMIREZ. UPDATED ON PLAN OF CARE AND PATIENT CONDITION. HAS NO CONCERNS AT THIS TIME. PALLIATIVE CARE NURSE COMMUNICATED THAT PATIENT WILL BE TRANSFERRED TO [facility] 06/26/19 @ 1000. PATIENT AND DAUGHTER AWARE. AGREE WITH TRANSFER AT THIS TIME. ENCOURAGED PATIENT TO VOICE NEEDS OR CONCERNS. WARM BLANKETS PROVIDED, CALL LIGHT WITHIN REACH, BED IN LOW LOCK POSITION, SIDE RAILS UP X 3 PER PATIENT REQUEST FOR REPOSITIONING.
--- NOTE | 2019-06-25 11:30 | NUR ---
Pt was offered a comfort quilt but reports she has already been given one by a member of her voodoo. She declines an additional one. Daughter is at bedside. Pt denies further needs.
--- NOTE | 2019-06-25 11:50 | NUR ---
After speaking with Yaron just now the plan is for pt to discharge from here at 10am tomorrow navid. As soon as scripts are available, they should be sent to [facility] and to the [facility] [place] along with her other orders. Yaron is calling Essie to talk with her as well and they will meet with Essie today at 2pm to sign paperwork. Dr Wyman will be the attending physician to hospice house. [facility].
--- NOTE | 2019-06-25 17:01 | NUR ---
Penciller collaborated with Caro Palliative RN who advised patient will discharge tomorrow to [facility] at 1000. SW faxed prescriptions to [facility] and discharge orders will be sent tomorrow. BERNIE met with patient and patient's daughter to discuss transportation. Patient states she does not want EMS transport and her family will transport her. SW to continue to follow and will fax orders tomorrow.
--- NOTE | 2019-06-25 20:30 | NUR ---
Initial shift assessment done- did take few sips of clear liquids from dinner tray- denies pain at this time, dressing to left side of abd dry and intact{pleurex drain} Understands to call for assistance up to bathroom- no requests at this time, PAC to right chest,
--- NOTE | 2019-06-26 04:45 | NUR ---
Did get some rest during the night- quiet night--denies pain- states she does not need any pain meds- Up to bathroom with assist about 4 times during the shift- had very scant amount stool, small amounts urine- very pleasant, no requests
[2019-06-26 09:14] VITALS: BP 124/74; PULSE 86; TEMP 98.6
--- NOTE | 2019-06-26 09:45 | NUR ---
pt assessment completed and charted. pt denies any pain at this time. Pt on hospice. Pt has Rt chest port that was deaccessed prior to discharge. No complications. Pt denied any need for pain medications. Pt has LLQ abdominal/pluerix drain covered with gauze and tegaderm. Suctioning bottle sent with family and pt to hospice. Pt assisted in getting dressed and to . Pt family transporting pt to [facility]. No other concerns expressed.
--- NOTE | 2019-06-26 09:46 | NUR ---
[facility], Spoke with family about transport. Client reaffirmed choice of using private car and ability to tolerate wheelchair. Client reports that she does not want to use EMS again due to anxiety provocation. Nurse and aid will assess ability to get into wheelchair. If patient unable to tolerate, we will make alternate arrangements, patient is agreeable to the plan.
== END 2019-06-26 09:50 | disposition hospice, home (50) | DRG 872 ==
LOC: COL.ER 21:14 → MEDICAL 23:06
PROVIDERS: Emergency Medicine; Nurse Practitioner Family; ADMIT Internal Medicine
PROC: 0W9G30Z Drainage of Peritoneal Cavity with Drainage Device, Percutaneous Approach (ICD-10-PCS; principal; 2019-06-25)
DX: A41.9 Sepsis, unspecified organism (principal); N39.0 Urinary tract infection, site not specified; R18.8 Other ascites; C56.9 Malignant neoplasm of unspecified ovary; N17.9 Acute kidney failure, unspecified; J90 Pleural effusion, not elsewhere classified; I10 Essential (primary) hypertension; I25.10 Atherosclerotic heart disease of native coronary artery without angina pectoris; Z66 Do not resuscitate; Z51.5 Encounter for palliative care; M19.90 Unspecified osteoarthritis, unspecified site; G47.00 Insomnia, unspecified; R53.81 Other malaise; Z90.710 Acquired absence of both cervix and uterus; Z95.5 Presence of coronary angioplasty implant and graft; Z79.1 Long term (current) use of non-steroidal anti-inflammatories (NSAID); Z88.1 Allergy status to other antibiotic agents; Z88.8 Allergy status to other drugs, medicaments and biological substances
CPT/HCPCS: 99223-AI; 99231-AI; 99232-AI; 99239; C1729; C9113; J0696; J1644; J2060; J2250; J2405; J2543; J2550; J3010; J7030